=== PATIENT | female | born 1980 | race Hispanic/Latino ===

== ENCOUNTER → 2021-07-28 | Outpatient (CLI) | payer OTHER ==
[~2021-07-28] MED LIST: BACTRIM DS TAB1 EACH PO; HYOSCYAMINE0.375 MG PO; PROTONIX20 MG PO
== END ==
LOC: OR 13:09 → LAB 13:09 → EDSTATUS 15:30
PROVIDERS: ATTEND Internal Medicine Gastroenterology
DX: K31.89 Other diseases of stomach and duodenum (principal); K21.9 Gastro-esophageal reflux disease without esophagitis; R19.5 Other fecal abnormalities; R10.9 Unspecified abdominal pain; Z53.8 Procedure and treatment not carried out for other reasons; U07.1 COVID-19
CPT/HCPCS: U0002